=== PATIENT | male | born 1950 | race African-American/Black ===

== ENCOUNTER 2016-10-17 05:21 | Day surgery (SDC) | payer BC ==
[2016-10-12 12:17] LABS: BASOPHILS 0.8 %; BASOPHILS ABSOLUTE 0.05 10/3/uL (0.0-0.16); EOSINOPHILS 8.8 %; EOSINOPHILS ABSOLUTE 0.57 10/3/uL (0.0-0.53); HEMOGLOBIN 10.3 g/dL (13.6-17.8); LYMPHOCYTES ABSOLUTE 2.59 10/3/uL (0.67-4.30); MEAN CORPUS HGB CONC 31.6 g/dL (32.0-36.0); MEAN CORPUSCULAR VOLUME 75.8 fL (80-100); MEAN PLATELET VOLUME 8.7 fL (9.2-13.0); MONOCYTES ABSOLUTE 0.71 10/3/uL (0.21-1.20); NEUTROPHILS 39.4 %; NEUTROPHILS ABSOLUTE 2.56 10/3/uL (2.02-8.40); PLATELET COUNT 417 10/3/uL (150-400); RBC DISTRIBUTION WIDTH 16.9 % (12.0-16.0)
[2016-10-12 12:18] LABS: HEMATOCRIT 32.6 % (40.0-51.0); MANUAL DIFF NO %; WHITE BLOOD CELLS 6.5 10/3/uL (4.5-10.5)
[2016-10-12 12:31] LABS: A/G RATIO 0.8 (0.7-1.9); ALBUMIN 3.2 G/DL (3.5-5.0); ALKALINE PHOSPHATASE 82 U/L (45-117); BUN (BLOOD UREA NITROGEN) 7 MG/DL (6-23); CALCIUM, SERUM 9.1 MG/DL (8.5-10.4); CHLORIDE, SERUM 104 MMOL/L (96-112); CO2 (CARBON DIOXIDE) 29 MMOL/L (24-34); CREATININE 0.91 MG/DL (0.70-1.30); GFR AFRICAN AMERICAN 102 ML/MIN (>=60); GFR NON AFRICAN AMERICAN 88 ML/MIN (>=60); GLOBULIN 4.1 G/DL (2.5-4.1); GLUCOSE, SERUM 128 MG/DL (60-99); SGOT(AST) 15 U/L (5-40); SGPT(ALT) 22 U/L (5-65); SODIUM, SERUM 141 MMOL/L (135-148); TOTAL BILIRUBIN 1.3 MG/DL (0-1.2); TOTAL PROTEIN 7.3 G/DL (6.0-8.5)
--- NOTE | ~2016-10-17 | PREOPHP ---
PreOp History and Physical [place] [id number] [place]. [address] NAME: MIRTHA BRASHER : 52 STATUS : REG [facility]#: [id number] AGE: 66 ADM/REG DATE : 10/17/16 MR#: [id number] REPORT SERV DATE: 10/17/16 DICTATED BY: SHAVON CORTÉS III DATE: 10/06/16 REPORT STATUS : Draft TRANSCRIBED BY: MODL DATE: 10/06/16 HISTORY OF PRESENT ILLNESS: This 66-year-old male comes to the operating room for subclavian Port-A-Cath placement to allow for chronic IV access for chemotherapy for gastric cancer. The patient has recently been diagnosed with a poorly differentiated stage IB gastric cancer. He is status post partial gastrectomy. He has no evidence for disease. We have been asked by his medical oncologist to place a Port-A-Cath to allow for chronic IV access for chemotherapy. He comes now for subclavian Port-A-Cath placement. PAST MEDICAL HISTORY: Essentially unremarkable. Otherwise, no history of diabetes, hypertension, cardiac, or pulmonary disease. MEDICATIONS: None regularly. ALLERGIES: NONE. SOCIAL HISTORY: The patient has a previous history of tobacco abuse. He has a history of alcohol use. He is . REVIEW OF SYSTEMS: The patient has had some weight loss over the last several months. His 14-point review of systems is otherwise unremarkable. PHYSICAL EXAMINATION: GENERAL: This is a male, in no acute distress. He is alert and oriented x3. HEENT: Unremarkable. NEURO: Cranial nerves 2 through 12 were normal. LUNGS: Clear. CARDIAC: Normal. ABDOMEN: Soft, nontender. ASSESSMENT: 1. This is a 66-year-old male with poorly differentiated gastric cancer, status post partial gastrectomy performed on 09/06/2016 for stage IB gastric cancer, with good recovery. 2. History of alcohol and tobacco abuse. PLAN: The patient comes to the operating room now for subclavian vein Port-A-Cath placement. This procedure, the risks, benefits, and alternatives, including not limited to the risk for bleeding, infection, pneumothorax, air embolus, pericardial tamponade, infection of the port or subclavian vein thrombosis requiring removal of the port, dislodgement of the Port-A-Cath tubing requiring extraction, and unforeseen complications including deep venous thrombosis, pulmonary embolus, myocardial infarction, stroke, pneumonia, , have been explained to the patient prior to surgery. His questions have been answered. He understands the risks and agrees to the surgery as planned. PreOp History and Physical [place] [address] [facility] [place]. [address] NAME: MIRTHA BRASHER : 52 STATUS : REG [facility] PAT#: [id number] AGE: 66 ADM/REG DATE : 10/17/16 MR#: [id number] REPORT SERV DATE: 10/17/16 DICTATED BY: SHAVON CORTÉS III DATE: 10/06/16 REPORT STATUS : Draft TRANSCRIBED BY: COMFORT DATE: 10/06/16 Elisabeth/COMFORT Shavon Cortés III, M.D. / [id number]
--- NOTE | ~2016-10-17 | OP ---
Record Of Operation [facility] [address] [place]. [address] NAME: MIRTHA BRASHER : 52 STATUS : REG [facility] [place] PAT#: [id number] AGE: 66 ADM/REG DATE : 10/17/16 MR#: [id number] REPORT SERV DATE: 10/17/16 DICTATED BY: SHAVON CORTÉS III DATE: 10/17/16 REPORT STATUS : Draft TRANSCRIBED BY: MODSameera DATE: 10/17/16 DATE OF PROCEDURE: 10/17/2016 PREOPERATIVE DIAGNOSIS: History of gastric cancer, with need for Port-A-Cath placement to allow for chronic IV access for chemotherapy. POSTOPERATIVE DIAGNOSIS: History of gastric cancer, with need for Port-A-Cath placement to allow for chronic IV access for chemotherapy. PROCEDURE: Right subclavian vein Port-A-Cath placement with fluoroscopy. SURGEON: Shavon Cortés M.D. ANESTHESIA: General with intubation. COMPLICATIONS: None. ESTIMATED BLOOD LOSS: Less than 5 mL. SPECIMENS: None. DRAINS: None. LAP AND SPONGE COUNT: Correct x3. BRIEF HISTORY: This 66-year-old male was recently diagnosed with gastric cancer. We have been asked by his medical oncologist to place a Port-A-Cath to allow for chronic IV access for chemotherapy. This procedure, the risks, benefits, and alternatives, including not limited to the risk for bleeding, infection, air embolus, pneumothorax, pericardial tamponade, failure of the port to function, infection of the port, or subclavian vein thrombosis requiring removal of the port, dislodgement of the Port-A-Cath tubing requiring extraction and unforeseen complications including deep venous thrombosis, pulmonary embolus, myocardial infarction, stroke, pneumonia, and , were explained to the patient prior to surgery. His questions were answered. He understood the risks and agreed to the surgery as planned. DESCRIPTION OF PROCEDURE: After being appropriately identified, and after discussing risks of surgery with the patient again in the preoperative area, the patient was taken to the operating room and placed in the supine position on the operating room table. General anesthesia was administered, and the patient was intubated without difficulty. The upper chest and neck areas were prepped and draped sterilely in the usual fashion. After an appropriate "time-out" per JCAHO standards, a needle was used to identify the right subclavian vein. The vein was identified on the first pass of the needle. A guidewire was passed through the needle and the needle was removed. Fluoroscopy was performed, confirming the tip of the guidewire to be in the correct position of superior vena cava. A small transverse incision was then made at the exit site of the guidewire from the skin. A Record Of Operation [place] [id number] [facility] [place]. [address] NAME: MIRTHA BRASHER : 52 STATUS : REG [facility] [place] PAT#: [id number] AGE: 66 ADM/REG DATE : 10/17/16 MR#: [id number] REPORT SERV DATE: 10/17/16 DICTATED BY: SHAVON CORTÉS III DATE: 10/17/16 REPORT STATUS : Draft TRANSCRIBED BY: COMFORT DATE: 10/17/16 subcutaneous infraclavicular pocket was made of the appropriate size for the Port-A-Cath housing. The Port-A-Cath housing was connected to the tubing. The Port-A-Cath housing and tubing were flushed with a heparin solution, and the tubing was cut to the appropriate length. The introducer was then placed over the guidewire. The guidewire and inner dilator were removed. The Port-A-Cath tubing was then placed through the sheath as the sheath was peeled away. This went very smoothly. The Port-A-Cath housing was positioned in the infraclavicular pocket. It was secured in place with 2-0 silk sutures. It was accessed with a Glaser needle and noted to aspirate blood easily. It was then flushed with heparin solution noted to flush easily. Repeat fluoroscopy was performed, confirming the tip of the Port-A-Cath tubing to be in the correct position in superior vena cava. Hemostasis was assured. The subcutaneous tissue was closed with a running 3-0 Vicryl suture. The skin was closed with running subcuticular 4-0 Monocryl stitch. The incision was injected with 0.5% Marcaine. Dressings were applied. Anesthesia was reversed, and the patient was taken to recovery room in stable condition. The patient tolerated the procedure well. The patient will be discharged later when stable and comfortable after the chest x-ray has been cleared per Radiology. The patient's family was advised that the wound should be kept clean and dry for 48 hours, that there should be no driving for 2-3 days after surgery or while using narcotics, and the patient shall resume usual medications. The patient was asked to return in two weeks for followup or sooner for any fever, chills, wound drainage, or other problems prior to that time. EWA/COMFORT Shavon Cortés III, M.D. / [id number] CC: Shavon Cortés III, M.D.
[~2016-10-17 05:21] MED LIST: DURICEF PO; PERCOCET 7.5/321 TAB PO; PROTONIX PO
== END 2016-10-17 17:42 | disposition home or self-care (01) ==
LOC: SDC 05:21
PROVIDERS: Surgery
PROC: 05H533Z Insertion of Infusion Device into Right Subclavian Vein, Percutaneous Approach (ICD-10-PCS; 2016-10-17)
PROC: B516ZZA Fluoroscopy of Right Subclavian Vein, Guidance (ICD-10-PCS; 2016-10-17)
PROC: 0JH60XZ Insertion of Tunneled Vascular Access Device into Chest Subcutaneous Tissue and Fascia, Open Approach (ICD-10-PCS; principal; 2016-10-17 06:45)
DX: C16.9 Malignant neoplasm of stomach, unspecified (principal); Z90.3 Acquired absence of stomach [part of]; Z87.891 Personal history of nicotine dependence; Z79.899 Other long term (current) drug therapy
CPT/HCPCS: 71010; 71020; 77001; 80053; 85025; 93005; C1751; J0360; J0690; J2250; J2405; J3010; Q9967